=== PATIENT | female | born 1970 | race Caucasian/White ===

== ENCOUNTER 2018-12-21 19:56 | Emergency (ER) | payer MEDICAID ==
[2018-12-21] MEDS: LEVALBUTEROL (NEB) 1.25 MG/0.5 ML AMP HHN (21:23)
[2018-12-21] MEDS: IPRATROPIUM (NEB) 0.5 MG/2.5 ML AMP HHN (21:23)
[2018-12-21] MEDS: LABETALOL HCL 20MG INJ IV (21:25)
[2018-12-21 22:43] LABS: ADD MAN DIFF? NO
[2018-12-21 22:45] LABS: BASOPHIL # 0.1 10^3/ul (0.0-0.1); BASOPHILS % 1.1 % (0.0-2.0); EOSINOPHILS # 0.5 10^3/ul (0.0-0.5); EOSINOPHILS % 5.2 % (0.0-7.0); LYMPHOCYTES % 32.4 % (15.0-51.0); MEAN CORPUSCULAR HEMOGLOBIN 26.1 pg (29.0-33.0); MEAN CORPUSCULAR HGB CONC 31.6 g/dl (32.0-37.0); MEAN CORPUSCULAR VOLUME 82.6 fl (82.0-101.0); MEAN PLATELET VOLUME 9.5 fl (7.4-10.4); MONOCYTE # 0.9 10^3/ul (0.3-0.9); NEUTROPHIL # 4.8 10^3/ul (1.6-7.5); NEUTROPHILS % 51.2 % (39.0-77.0); PLATELET COUNT 448 10^3/UL (140-415); RED CELL DISTRIBUTION WIDTH 15.6 % (11.5-14.5)
[2018-12-21 22:45] LABS: WHITE BLOOD COUNT 9.3 10^3/ul (4.8-10.8)
[2018-12-21 22:49] LABS: INR 0.86; PROTIME 11.8 Sec (11.9-14.9); PT RATIO 0.9
[2018-12-21 22:50] LABS: PARTIAL THROMBOPLASTIN TIME 34.6 Sec (23.0-35.0)
[2018-12-21 22:52] LABS: ANION GAP 8 (5-13); BLOOD UREA NITROGEN 10 mg/dl (7-20); CALCIUM 8.8 mg/dl (8.4-10.2); CARBON DIOXIDE 26 mmol/L (21-31); CHLORIDE 104 mmol/L (97-110); CREATININE 0.66 mg/dl (0.44-1.00); Estimated GFR > 60 mL/min (>60); GLUCOSE 94 mg/dl (70-220); POTASSIUM 3.8 mmol/L (3.5-5.1); SODIUM 138 mmol/L (135-144)
== END 2018-12-21 23:27 | disposition home or self-care (01) ==
LOC: E/R 19:56
DX: I10 Essential (primary) hypertension (principal); J45.909 Unspecified asthma, uncomplicated
CPT/HCPCS: 36415; 70450; 80048; 85025; 85610; 85730; 93005; 94664; 96374; 99285-25